=== PATIENT | male | born 1965 | race Caucasian/White ===

== ENCOUNTER 2021-02-05 09:02 | Outpatient (CLI) | payer BC, SELFPAY | END 2021-02-05 09:03 | disposition home or self-care (01) | LOC: ANHCOVIDVC 09:02 | PROVIDERS: PCP Family Medicine | DX: Z23 Encounter for immunization (principal) | CPT/HCPCS: 0001A; 91300 ==

== ENCOUNTER 2021-02-26 09:02 | Outpatient (CLI) | payer BC, SELFPAY | END 2021-02-26 09:03 | disposition home or self-care (01) | LOC: ANHCOVIDVC 09:03 | PROVIDERS: PCP Family Medicine | DX: Z23 Encounter for immunization (principal) | CPT/HCPCS: 0002A; 91300 ==

== ENCOUNTER → 2021-05-03 00:39 | Outpatient (CLI) | payer BC, SELFPAY ==
[2021-05-03 17:56] LABS: SARS-CoV-2 RNA PCR Negative
== END ==
PROVIDERS: PCP Family Medicine; Visit Provider Internal Medicine Gastroenterology
DX: Z01.812 Encounter for preprocedural laboratory examination (principal); Z20.822 Contact with and (suspected) exposure to COVID-19
CPT/HCPCS: C9803; U0003; U0005

== ENCOUNTER 2021-05-07 01:09 | Day surgery (SDC) | payer BC, SELFPAY ==
[2021-04-30 08:36] VITALS: BMI 39.0
--- NOTE | 2021-05-06 13:16 | WPDANESEPPF ---
Anes - Initial Pre Proc Eval Procedure: Operation Date: 05/07/21 08:00 Proposed Procedures p Screening Colonoscopy - Ochoa Montiel MD Date/Time: 05/06/21 13:16 Surgeon: Ochoa Montiel MD Pre Op Diagnosis: neoplasm screening Patient Data Age: 56 Gender: M Height: 1.8 m Weight: 127 kg Allergies Allergy/AdvReac Type Severity Reaction Status Date / Time No Known Allergies Allergy Verified 04/30/21 08:31 Home Medications Medication Instructions Recorded Confirmed Type sildenafil (pulm.hypertension) 20 20 mg PO .prn #30 tablet 09/04/20 04/30/21 Rx mg tablet cetirizine 5 mg-pseudoephedrine ER 1 tablet PO BID #180 tablet 01/15/21 04/30/21 Rx 120 mg tablet,extended release,12hr sodium,potassium,mag sulfates 17.5 See Rx Instructions PO .COMPLEX 04/17/21 04/30/21 Rx gram-3.13 gram-1.6 gram oral soln #354 ml lisinopril 10 See Rx Instructions .ROUTE 04/18/21 04/30/21 Rx mg-hydrochlorothiazide 12.5 mg .COMPLEX #90 tablet tablet azelastine 137 mcg NASAL Q12H PRN 04/30/21 04/30/21 History ascorbic acid (vitamin C) 05/07/21 History Patient hx anesthesia problems: none Family hx anesthesia problems: none PMFSH Past Medical History Medical History (Updated 05/06/21 @ 13:17 by Oscar Laguna DO) HTN (hypertension) Obstructive sleep apnea (adult) (pediatric) CPAP Surgical History Surgical History History of ankle surgery (~10/2019) History of back surgery Family History Family History Mother Family history of malignant melanoma, Onset Age: 73 Father Family history of malignant neoplasm of bone, Onset Age: 62 Social History Social History Smoking status: Never smoker Alcohol intake: never Alcohol use details: rarely Living arrangements: with family Spiritual care concerns: No Anes - Eval Final PreProcedure Day of Procedure 05/06/21 13:16 Patient weight: obese Heart: regular rate and rhythm Lungs: clear to auscultation and normal air movement Airway: Mallampati scale class IV Neurological: alert and oriented Last oral intake: >/= 8 hours ASA classification: III Emergent: no Anesthetic plan: proceed Anesthesia type and monitoring: general GIVS and standard monitoring Informed Consent: The patient's anesthetic plan and its attendant risks and benefits were discussed with the patient/family/POA. Questions were solicited and answers provided to the satisfaction of the patient/family/POA.
[2021-05-07 06:42] VITALS: BP 153/93; PULSE 78; RESP 18; TEMP 36.2; O2SAT 97; BMI 42.2
[2021-05-07] MEDS: LACTATED RINGERS 1,000 ML 150 ML IV CONT (07:00)
--- NOTE | 2021-05-07 07:54 | WPDGICN ---
Assessment and Plan Assessment and plan (1) Encounter for screening colonoscopy: Code(s): Z12.11 - Encounter for screening for malignant neoplasm of colon Status: Acute Assessment and Plan: Patient presents for screening colonoscopy because of his age. He has never had colonoscopy up to this point. Further recommendations will be given after endoscopy. Patient appears to be at average risk for colon polyps. (2) Rectal bleeding: Code(s): K62.5 - Hemorrhage of anus and rectum Status: Acute Assessment and Plan: Patient has had intermittent bright red blood per rectum suggesting possible hemorrhoids. Other lesions cannot be excluded. Plan is for high-fiber diet colonoscopy will be performed. additional therapy will be determined after endoscopy. GI Consult Note Consult date/time: 05/07/21 07:54 HPI: Mauricio Campbell is a 56 year old male Seen in evaluation at the request of Dr. Villasenor. patient presents for neoplasia screening colonoscopy. He has never had colonoscopy previously. patient states his weight appetite bowel movements are normal. He has on occasion had bright red blood per rectum with wiping. He did notice some associated discomfort on an extended car trip. Patient states his bowel habits have remained relatively normal occasionally they have been loose. The bowel movements themselves do not appear bloody. Review of Systems Review of Systems: All systems reviewed & are unremarkable except as noted in HPI and below PMFSH Past Medical History Medical History (Updated 05/07/21 @ 07:56 by Ochoa Montiel MD) HTN (hypertension) Obstructive sleep apnea (adult) (pediatric) CPAP Surgical History Surgical History History of ankle surgery (~10/2019) History of back surgery Family History Family History Mother Family history of malignant melanoma, Onset Age: 73 Father Family history of malignant neoplasm of bone, Onset Age: 62 Social History Social History Smoking status: Never smoker Alcohol intake: never Alcohol use details: rarely Living arrangements: with family Spiritual care concerns: No Meds Home Medications and Allergies Home Medications Medication Instructions Recorded Confirmed Type sildenafil (pulm.hypertension) 20 20 mg PO .prn #30 tablet 09/04/20 04/30/21 Rx mg tablet cetirizine 5 mg-pseudoephedrine ER 1 tablet PO BID #180 tablet 01/15/21 04/30/21 Rx 120 mg tablet,extended release,12hr sodium,potassium,mag sulfates 17.5 See Rx Instructions PO .COMPLEX 04/17/21 04/30/21 Rx gram-3.13 gram-1.6 gram oral soln #354 ml lisinopril 10 See Rx Instructions .ROUTE 04/18/21 04/30/21 Rx mg-hydrochlorothiazide 12.5 mg .COMPLEX #90 tablet tablet azelastine 137 mcg NASAL Q12H PRN 04/30/21 04/30/21 History ascorbic acid (vitamin C) 05/07/21 History Allergies Allergy/AdvReac Type Severity Reaction Status Date / Time No Known Allergies Allergy Verified 04/30/21 08:31 Vital Signs Vital Signs - 24 hr 05/07/21 06:42 Temperature 97.1 F L Pulse Rate 78 Respiratory Rate 18 Blood Pressure 153/93 H Pulse Oximetry 97 Exam Narrative: Exam Narrative: Physical exam reveals patient be alert. Vital signs stable. HEENT exam is unremarkable. Patient is anicteric. Lungs are clear to auscultation and percussion. Heart is without murmur or extra sounds. Abdominal exam bowel sounds are present soft nontender with no organomegaly. Digital external rectal exam is normal.
--- NOTE | 2021-05-07 08:22 | SUR.OPER ---
No descending colon polyp specimen retrieved Dr. Montiel notified.
[2021-05-07 08:23] VITALS: BP 126/81; PULSE 81; RESP 20; O2SAT 96
[2021-05-07 08:33] VITALS: BP 122/82; PULSE 78; RESP 18; O2SAT 96
[2021-05-07 08:43] VITALS: BP 141/88; PULSE 72; RESP 18; O2SAT 96
== END 2021-05-07 08:52 | disposition home or self-care (01) ==
PROVIDERS: PCP Family Medicine; Visit Provider Internal Medicine Gastroenterology
PROC: 0DJD8ZZ Inspection of Lower Intestinal Tract, Via Natural or Artificial Opening Endoscopic (ICD-10-PCS; CPT 45378; principal; 2021-05-07 08:00)
DX: Z12.11 Encounter for screening for malignant neoplasm of colon (principal); K63.5 Polyp of colon; K64.8 Other hemorrhoids; K57.30 Diverticulosis of large intestine without perforation or abscess without bleeding; K62.5 Hemorrhage of anus and rectum; I10 Essential (primary) hypertension; G47.33 Obstructive sleep apnea (adult) (pediatric); E66.9 Obesity, unspecified; Z68.41 Body mass index [BMI] 40.0-44.9, adult
CPT/HCPCS: 45385; C9803; J2704; J7120; U0003; U0005

== ENCOUNTER 2024-03-18 12:35 | Emergency (ER) | payer BC, SELFPAY ==
[2024-03-18 12:45] VITALS: BP 122/74; PULSE 76; RESP 16; TEMP 36.8; O2SAT 99
[2024-03-18 12:49] VITALS: BP 122/74; PULSE 76; RESP 16; TEMP 36.8; O2SAT 99
--- NOTE | 2024-03-18 12:51 | ED.GENADULT ---
HPI - General Adult General Chief complaint: Upper Respiratory Infection Stated complaint: Sinus Infection Symptoms Time Seen by Provider: 03/18/24 12:51 Source: patient Mode of arrival: ambulatory Limitations: no limitations History of Present Illness HPI narrative: 52-year-old male patient presents [facility] with complaints of cold symptoms. Patient does have history of chronic sinusitis and did recently see his doctor and they did change some nasal spray for him. Patient states she he takes Zyrtec D daily. Patient states he has had for the last couple of weeks cold-like symptoms patient states that most of the symptoms have improved but over the last 4 days he has had a lot of congestion to the nose it feels like it is behind the nose but denies any fevers body aches chills. Denies any sore throat. Denies any coughing, chest pain shortness of breath. Related Data Allergies Allergy/AdvReac Type Severity Reaction Status Date / Time No Known Allergies Allergy Verified 03/18/24 12:46 Review of Systems Review of Systems: CONSTITUTIONAL: Denies fever, chills, or sweats. EYES: Denies visual changes, redness, or discharge. ENT: Positive rhinorrhea, congestion, denies sore throat, or otalgia. CARDIOVASCULAR: Denies chest pain, palpitations, or edema. RESPIRATORY: Denies cough or dyspnea. GASTROINTESTINAL: Denies abdominal pain, nausea, vomiting, or diarrhea. GENITOURINARY: Denies dysuria or hematuria. SKIN: Denies rash or itching. MUSCULOSKELETAL: Denies back pain, joint pain, or myalgia. NEUROLOGIC: Denies headache, numbness, or weakness. PSYCHIATRIC: Denies anxiety or depression. [facility] Past Medical History Medical History HTN (hypertension) Male hypogonadism Obstructive sleep apnea (adult) (pediatric) CPAP Surgical History Surgical History History of ankle surgery (~10/2019) History of back surgery Family History Family History Mother Family history of malignant melanoma, Onset Age: 73 Father Family history of malignant neoplasm of bone, Onset Age: 62 Social History Social History (Reviewed 03/18/24 @ 13:06 by SONIA Linares Smoking status: Never smoker Alcohol intake: never Alcohol use details: rarely Do You Feel Safe in your Home?: Yes Lack of Transportation: No Lack of Food: Never True Current Housing: I Have Housing Concerned About Future Housing: No Difficulty Paying Gas/Electric Bills: No Difficulty Paying for Meds: No Currently Unemployed: No Education: Bachelor's Degree Difficulty w/ Childcare or Family Care: No Living arrangements: with family Spiritual care concerns: No Comments At the time of my signature I agree with nursing past medical history, surgical, social, and family history. There is no relevant family history pertinent to the presenting complaint. Exam Narrative: GENERAL: Well-appearing, well-nourished, and in no acute distress. HEAD: Normocephalic, atraumatic. EYES: PERRLA and EOMI. ENT: Nares with edema noted bilaterally, no erythema noted to the nares. no Active rhinorrhea or epistaxis. Mucous membranes moist. posterior pharynx with no erythema, tonsillar enlargement, exudates or lesions present. Bilateral TMs are clear no erythema foreign bodies the canal. NECK: Supple. No lymphadenopathy CHEST: Clear to auscultation. No respiratory distress. HEART: Regular rate and rhythm. No murmur heard. Normal peripheral pulses. ABDOMEN: Soft, nontender, nondistended, normal active bowel sounds. EXTREMITIES: Normal range of motion. No edema. SKIN: Warm, dry, no rash. NEURO: No focal deficits. Alert and oriented x3. Course Course Level of Care: [facility] Visit Vital Signs Vital signs: Vital Signs Temperature 36.8 C 03/18/24 12:45 Pulse Rate 76
== END 2024-03-18 13:12 | disposition home or self-care (01) ==
PROVIDERS: Emergency Provider Nurse Practitioner Family; PCP Internal Medicine
DX: J01.90 Acute sinusitis, unspecified (principal); I10 Essential (primary) hypertension; G47.33 Obstructive sleep apnea (adult) (pediatric)
CPT/HCPCS: 99213; G0463

== ENCOUNTER 2024-12-21 10:35 | Outpatient (CLI) | payer BC, SELFPAY ==
--- NOTE | ~2024-12-21 | CT_ITS ---
EXAMINATION: CT sinus wo con DATE: 12/21/2024 10:48 INDICATION: Acute recurrent maxillary sinusitis. TECHNIQUE: Computed tomography (CT) of the paranasal sinuses was performed without intravenous contra st. Iterative reconstruction technique was employed. The dose-length product was 406.70 mGy-cm. COMPARISON: Head CT 06/23/2007 FINDINGS: There is mucosal thickening in the frontal recesses. There is extensive mucosal thickening in the ethmoid and sphenoid sinuses. There is moderate mucosal thickening in the maxillary sinuses. T here is sclerosis of the scales of the sphenoid sinuses, consistent with chronic sinusitis. There is r ightward deviation of the nasal septum. There is occlusion of the ostiomeatal units. IMPRESSION: 1. Chronic sinusitis. 2. Rightward deviation of the nasal septum. Reviewed, dictated and finalized at location A. [employer]
== END 2024-12-21 10:36 | disposition home or self-care (01) ==
LOC: GOSHIMG 10:35
PROVIDERS: PCP Otolaryngology; Visit Provider Otolaryngology
DX: J01.01 Acute recurrent maxillary sinusitis (principal); J34.2 Deviated nasal septum; J32.2 Chronic ethmoidal sinusitis; G47.33 Obstructive sleep apnea (adult) (pediatric)
CPT/HCPCS: 70486

== ENCOUNTER 2025-04-20 19:33 | Emergency (ER) | payer BC, SELFPAY ==
[2025-04-20 19:40] VITALS: BP 120/90; PULSE 81; RESP 16; TEMP 36.1; O2SAT 99
--- NOTE | 2025-04-20 19:53 | ED.URI ---
HPI - URI/Sore Throat General Chief Complaint: Upper Respiratory Infection Stated Complaint: Sinus Infection Symptoms Source: patient Mode of arrival: ambulatory Limitations: no limitations History of Present Illness HPI Narrative: Patient is a 60-year-old male presents to the clinic with complaints of congestion all x3 days. He has been using Afrin [id number] and had minimal relief. He has been seeing ENT, and states that he is supposed to be getting reconstructive surgery of his nasal passages. Denies shortness of breath, difficulty swallowing, fevers, body aches. Related Data Home Medications ?Medication ?Instructions ?Recorded ?Confirmed ?Last Taken ?Type budesonide 0.5 mg/2 mL suspension 0.5 mg irrigation DAILY PRN 01/18/25 03/21/25 Unknown History for nebulization chronic sinusitis Allergies Allergy/AdvReac Type Severity Reaction Status Date / Time No Known Allergies Allergy Verified 04/20/25 19:35 Review of Systems Review of Systems: CONSTITUTIONAL: Denies body aches, fever, chills, or sweats. EYES: Denies visual changes, redness, or discharge. ENT: Reports rhinorrhea and congestion. Denies sore throat or otalgia. CARDIOVASCULAR: Denies chest pain, palpitations, or edema. RESPIRATORY: Denies cough or dyspnea. GASTROINTESTINAL: Denies abdominal pain, nausea, vomiting, or diarrhea. GENITOURINARY: Denies dysuria or hematuria. SKIN: Denies rash, itching, or wounds. MUSCULOSKELETAL: Denies back pain, joint pain, or myalgia. NEUROLOGIC: Denies headache, numbness, tingling, or weakness. PSYCH: Denies depression or anxiety. All systems reviewed & are unremarkable except as noted in HPI and below PMFSH Past Medical History Medical History Long-term current use of testosterone cypionate Male hypogonadism Obstructive sleep apnea (adult) (pediatric) CPAP HTN (hypertension) Surgical History Surgical History History of back surgery History of ankle surgery (~10/2019) Family History Family History Mother Family history of malignant melanoma, Onset Age: 73 Father Family history of malignant neoplasm of bone, Onset Age: 62 Social History Social History Social History: Caffeine-daily Smoking status: Never smoker Alcohol intake: current Alcohol use details: rarely Substance use: never Substance use type: does not use Do You Feel Safe in your Home?: Yes Lack of Transportation: No Lack of Food: Never True Current Housing: I Have Housing Concerned About Future Housing: No Difficulty Paying Gas/Electric Bills: No Difficulty Paying for Meds: No Currently Unemployed: No Education: Bachelor's Degree Difficulty w/ Childcare or Family Care: No Living arrangements: with family Spiritual care concerns: No Comments At time of signature, I have reviewed and agree with nursing past medical, surgical, social and family history unless otherwise noted. Please see nursing chart for further information. There is no relevant family history pertinent to the presenting complaint. Exam Narrative: GENERAL: Well-appearing, well-nourished, and in no acute distress. EYES: EOMI. No redness or drainage. Conjunctivae normal. ENT: Mucous membranes pink and moist. Nares clear. TMs fluid filled but intact bilaterally. No Throat Erythema or tonsillar exudate, uvula midline. Nasal congestion noted. NECK: Normal AROM. Supple. No lymphadenopathy. CHEST: No respiratory distress. Clear to auscultation. HEART: Regular rate and rhythm. No murmur appreciated. Normal peripheral pulses. ABDOMEN: Soft, nontender, nondistended, normal active bowel sounds. SKIN: Warm, dry, no rash. Capillary refill normal. Normal skin turgor. NEURO: No focal deficits. Alert and oriented x3. Gait steady. PSYCH: Normal affect. No signs of depression or anxiety. Course Course Level of Care: [facility] Visit Vital Signs Vital signs: Vital Signs Temperature 97 F L 04/20/25 19:40 Pulse Rate 81 04/20/25 19:40 Respiratory Rate 16 04/20/25 19:40 Blood Pressure 120/90 04/20/25 19:40 Pulse Oximetry 99 04/20/25 19:40 Temperature 97 F L 04/20/25 19:40 Pulse Rate 81 04/20/25 19:40 Respiratory Rate 16 04/20/25 19:40 Blood Pressure 120/90 04/20/25 19:40 Pulse Oximetry 99 04/20/25 19:40 Reviewed. MDM - URI/Sore Throat MDM Narrative Medical decision making narrative: Discussed physical exam findings. Steroid given for inflammation Advised supportive measures and signs/symptoms to go to the ER. Pt is appropriate for outpt treatment and follow up. Differential Diagnosis Differential diagnosis: Likely upper respiratory infection, sinusitis, viral infection and bronchitis Critical Care Time Critical Care Time Critical Care Time: No Discharge Plan Discharge Clinical Impression: Complaint of nasal congestion Patient Disposition: Home Condition: Stable Instructions: Antibiotic Form, Upper Respiratory Infection (DC) Additional Instructions: Take steroid as prescribed. Recommend Flonase spray and Zyrtec (or Claritin/Traci) Tylenol every 8 hours as needed for pain Symptomatic treatment includes: rest, fluids, and increase humidity of the air at home. Follow up with your primary care provider in 1 week. Go to the ER for worsening symptoms or concerns. Patient Language: Cuban Prescriptions: New prednisone 20 mg tablet 40 mg PO DAILY 5 Days Qty: 10 0RF No Action azelastine 137 mcg (0.1 %) aerosol,spray 137 mcg NASAL Q12H PRN (Reason: allergies) Qty: 30 3RF Rx Instructions: administer into each nostril sildenafil 50 mg tablet 50 mg PO DAILY PRN (Reason: sexual activity) Qty: 30 4RF Rx Instructions: administer 30 minutes to 4 hours before activity cetirizine-pseudoephedrine [Allergy Relief-D (cetirizine)] 5-120 mg tablet extended release 12 hr 1 tablet PO Q12H PRN (Reason: allergy symptoms) Qty: 180 1RF budesonide 0.5 mg/2 mL suspension for nebulization 0.5 mg irrigation DAILY PRN (Reason: chronic sinusitis) Rx Instructions: and add 2 mL container to sinus rinse kit and saline and distilled water to irrigate each side of nose b.i.d. (DME) syringe with needle [BD Eclipse Luer-Neena] 3 mL 23 x 1 syringe See Rx Instructions .Route Qty: 12 1RF Rx Instructions: Use to inject testosterone weekly. testosterone cypionate [Depo-Testosterone] 200 mg/mL oil 140 mg IM WEEKLY Qty: 10 1RF (DME) safety needles [BD Eclipse] 18 gauge x 1 1/2 needle See Rx Instructions .Route Qty: 100 0RF Rx Instructions: Use to draw up testosterone lisinopril-hydrochlorothiazide 20-12.5 mg tablet 1 tablet PO DAILY Qty: 90 1RF Zepbound 10 mg/0.5 mL pen injector 10 mg subcut WEEKLY Qty: 2 0RF Follow-up/Referrals: PHYSICIAN,[employer] [Primary Care Provider] - Stand Alone Forms: Work/School Release IP Time of Disposition: 19:57
== END 2025-04-20 20:02 | disposition home or self-care (01) ==
DX: R09.81 Nasal congestion (principal); I10 Essential (primary) hypertension; G47.33 Obstructive sleep apnea (adult) (pediatric)
CPT/HCPCS: 99213; G0463